=== PATIENT | male | born 1950 | race Caucasian/White ===

== ENCOUNTER 2020-09-05 06:14 | Day surgery (SDC) | payer MEDICARE, OTHER ==
[2020-09-05] MEDS ORDERED: Midazolam 1 MG/ML 2 ML SDV IV ONE ×4 (06:15→07:41)
[2020-09-05] MEDS ORDERED: fentaNYL 100 MCG/2 ML SDV IV ONE ×3 (06:15→07:38)
[2020-09-05] MEDS ORDERED: fentaNYL 100 MCG/2 ML SDV ONE (06:37)
[2020-09-05] MEDS ORDERED: Midazolam 1 MG/ML 2 ML SDV ONE (06:37)
[2020-09-05] MEDS ORDERED: Dextrose 5%-0.45% NaCl 1,000 ML IV SCH (06:45)
--- NOTE | 2020-09-05 08:26 | OR ---
DATE: 09/05/2020 PROCEDURES: Esophagogastroduodenoscopy and multiple pinch biopsies. INSTRUMENT USED: GIF-HQ190 Olympus video panendoscope. PREMEDICATIONS: No oral or topical anesthesia used. Fentanyl 100 mcg intravenous, Versed 2 mg intravenous, nasal O2 cannula. The procedure was done under pulse oximetry, BP recording, and telemetry monitor. INDICATION: The patient with dysphagia and recent esophagogram suggestive of distal esophageal stricture. Esophagogastroduodenoscopy is performed for detection of any active erosive lesions, Arechiga esophagus, and/or malignancy also under consideration, H pylori status to be determined, esophageal biopsies to be taken for any evidence of eosinophilic esophagitis if indicated, esophageal dilatation if indicated, endoscopic hemostasis therapy if needed. PROCEDURE IN DETAIL: The scope was passed with ease. Adequate visualization of the esophagus was made from proximal to distal areas. No upper esophageal lesions identified. There was some stricture of the distal esophagus, but the tip of the scope was passed with ease to visualize the gastric mucosa. No esophageal polyp or tumor mass identified. No evidence of erosive esophagitis by Victoria criteria. No esophageal varices noted. Z-line was seen at around 40 cm distal to the oral verge. No proximal gastric varices noted. Gastric fundus examination by retroflexion showed no polypoid lesions. No gastric ulcer, malignant mass, or vascular ectasia identified. Patchy erythema of the gastric antral and duodenal bulb mucosa noted. Duodenal bulb showed no ulcer. Visualized second part of the duodenum was unremarkable. Multiple pinch biopsies were taken from the gastric antrum and proximal body and sent for PyloriTek test for H pylori and histopathology. Four-quadrant biopsies were taken from the distal and proximal esophagus and sent for any histopathologic evidence of eosonophilic esophagitis. No bleeding was noted from any of the visualized areas at the completion of examination. Photographs were taken of the duodenal bulb, gastric antrum, fundus, and distal esophagus. IMPRESSION: Distal esophageal stricture. The patient tolerated the procedure well. [facility] /[id number]
--- NOTE | 2020-09-05 08:26 | OR ---
DATE: 09/05/2020 PROCEDURE DONE: Esophageal dilatation. INSTRUMENT USED: Mathis bougie esophageal dilator, [place]ese size 48. PREMEDICATIONS: Done after esophagogastroduodenoscopy. INDICATION: Distal esophageal stricture. PROCEDURE IN DETAIL: Esophageal dilatation was done with ease using a [place]ese size 48 dilator. No blood was noted at the dilator tip after completion. IMPRESSION: Distal esophageal stricture. The patient tolerated the procedure well. [facility] /[id number]
[2020-09-05 10:42] VITALS: BP 122/58; PULSE 50
== END 2020-09-05 09:59 | disposition home or self-care (01) ==
LOC: DL.ENDO 06:14
PROVIDERS: ATTEND Internal Medicine Gastroenterology
DX: K22.2 Esophageal obstruction (principal); J44.9 Chronic obstructive pulmonary disease, unspecified; I10 Essential (primary) hypertension; E78.00 Pure hypercholesterolemia, unspecified; F17.210 Nicotine dependence, cigarettes, uncomplicated; Z88.8 Allergy status to other drugs, medicaments and biological substances; Z79.899 Other long term (current) drug therapy; Z85.828 Personal history of other malignant neoplasm of skin
CPT/HCPCS: 43239; 43248; 87077; J2250; J3010; J7042

== ENCOUNTER 2022-07-25 05:41 | Day surgery (SDC) | payer MEDICARE, OTHER ==
[2022-07-25] MEDS ORDERED: Dextrose 5%-0.45% NaCl 1,000 ML IV SCH (06:00)
[2022-07-25] MEDS ORDERED: Midazolam 1 MG/ML 2 ML SDV IV ONE ×3 (06:22→06:30)
[2022-07-25] MEDS ORDERED: fentaNYL 100 MCG/2 ML SDV ONE (06:22)
[2022-07-25] MEDS ORDERED: Midazolam 1 MG/ML 2 ML SDV ONE (06:22)
[2022-07-25] MEDS ORDERED: fentaNYL 100 MCG/2 ML SDV IV ONE ×3 (06:22→06:29)
[2022-07-25 08:27] VITALS: BP 138/74; PULSE 49
== END 2022-07-25 08:45 | disposition home or self-care (01) ==
LOC: DL.ENDO 05:41
PROVIDERS: ATTEND Internal Medicine Gastroenterology
DX: K20.90 Esophagitis, unspecified without bleeding (principal); K22.2 Esophageal obstruction; K44.9 Diaphragmatic hernia without obstruction or gangrene; K31.89 Other diseases of stomach and duodenum; I10 Essential (primary) hypertension; J44.9 Chronic obstructive pulmonary disease, unspecified; E78.00 Pure hypercholesterolemia, unspecified; F17.200 Nicotine dependence, unspecified, uncomplicated; Z88.0 Allergy status to penicillin; Z88.5 Allergy status to narcotic agent; Z88.6 Allergy status to analgesic agent
CPT/HCPCS: 87077; 88305; J2250; J3010; J7042

== ENCOUNTER 2022-08-12 19:37 | Emergency (ER) | payer MEDICARE, OTHER ==
[2022-08-12] MEDS ORDERED: fentaNYL 100 MCG/2 ML SDV IVPUSH ONE ×4 (20:03→23:42)
[2022-08-12] MEDS ORDERED: Ondansetron 4 MG/2 ML SDV IVPUSH ONE ×2 (20:03→23:43)
[2022-08-12] MEDS ORDERED: Sodium Chloride 0.9% 1,000 ML IV ONE (20:03)
[2022-08-12] MEDS ORDERED: hydrALAZINE 20 MG/ML SDV IVPUSH ONE ×2 (20:38→22:00)
[2022-08-12 20:40] LABS: BASOPHILS PERCENT AUTO 0.3 % (0.0-1.0); EOSINOPHILS PERCENT AUTO 0.4 % (1.0-3.0); HEMATOCRIT 53.3 % (40.0-54.0); HEMOGLOBIN 19.2 g/dL (14.0-18.0); LYMPHOCYTES PERCENT AUTO 3.7 % (20.5-50.1); MEAN CORPUSCULAR HEMOGLOBIN 31.6 pg (27.0-34.0); MEAN CORPUSCULAR VOLUME 87.8 fL (80-100); MONOCYTES PERCENT AUTO 4.3 % (2-8); NEUTROPHILS PERCENT AUTO 91.3 % (42.2-75.2); PLATELET COUNT,PLT 177 10^3/uL (150-450); RED BLOOD CELL COUNT 6.07 10^6/uL (4.6-6.2); WHITE BLOOD CELL COUNT,WBC 15.8 10^3/uL (5.0-10.0)
[2022-08-12 21:00] LABS: A/G RATIO 1.2; ALBUMIN 4.5 g/dL (3.4-5.0); BILIRUBIN TOTAL 0.9 mg/dL (0.2-1.0); BUN/CREATININE RATIO 18.3 (No establ ref range); CREATININE 1.26 mg/dL (0.70-1.30); EST CRCL DRUG DOSING (CG) 40.12 mL/min; PROTEIN TOTAL,TP 8.3 g/dL (6.4-8.2)
[2022-08-12] MEDS ORDERED: Iopamidol 755 Mg/ML 100 ML Bottle IVPUSH ONE (21:05)
[2022-08-12 21:06] LABS: CALCIUM 9.7 mg/dL (8.5-10.1)
[2022-08-12 22:41] LABS: APPEARANCE,URINE CLEAR (CLEAR); BILIRUBIN,URINE NEGATIVE (NEGATIVE); COLOR,URINE YELLOW (YELLOW); GLUCOSE,URINE NEGATIVE (NEGATIVE); KETONES,URINE TRACE (NEGATIVE); LEUKOCYTE ESTERASE,URINE NEGATIVE (NEGATIVE); NITRITE,URINE NEGATIVE (NEGATIVE); OCCULT BLOOD,URINE NEGATIVE (NEGATIVE); PROTEIN,URINE 30 (NEGATIVE); UROBILINOGEN,URINE 0.2 mg/dL (0.2-1.0)
[2022-08-12 22:50] LABS: BACTERIA,URINE FEW /HPF (0-FEW/HPF); EPITHELIAL CELLS,URINE FEW /HPF (NOT SEEN); HYALINE CASTS,URINE FEW; MUCUS,URINE FEW /LPF (NOT SEEN); RBC,URINE 0-5 /HPF (0-5)
[2022-08-13 00:30] VITALS: BP 163/75; PULSE 106
== END 2022-08-13 00:16 | disposition left against medical advice (07) ==
LOC: DL.ED 19:37
DX: K63.1 Perforation of intestine (nontraumatic) (principal); R91.8 Other nonspecific abnormal finding of lung field; E78.00 Pure hypercholesterolemia, unspecified; C76.2 Malignant neoplasm of abdomen; I10 Essential (primary) hypertension; Z88.5 Allergy status to narcotic agent; Z88.0 Allergy status to penicillin; Z79.899 Other long term (current) drug therapy; Z79.82 Long term (current) use of aspirin; Z86.16 Personal history of COVID-19
CPT/HCPCS: 36415; 74174; 80053; 81001; 83605; 83690; 85025; 93005; 93010; 96361; 96374; 96375; 96376; 99284; 99291; 99292; J0360; J2405; J3010; J7030; Q9967